=== PATIENT | male | born 1985 | race Hispanic/Latino ===

== ENCOUNTER → 2018-07-28 | Outpatient (CLI) | payer BC ==
--- NOTE | 2018-07-28 09:27 | Diagnostic Imaging Report ---
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 Procedure: Double contrast barium swallow and upper GI fluoroscopic exam was performed using thick and thin oral barium and effervescent crystals. Radiation Exposure: Fluoroscopy Time: 1.4 minutes Radiation dose: 28.8 mGy DISCUSSION: ESOPHAGUS: Motility: Within normal limits.Primarily primary and secondary contraction with brisk clearance of contrast. Mucosa: Unremarkable. Distensibility: Normal. GASTROESOPHAGEAL JUNCTION: Moderate hiatal hernia. GASTROESOPHAGEAL REFLUX: Moderate spontaneous gastroesophageal reflux above the level of the christ. STOMACH: Normally distensible and demonstrates normal contours and mucosal pattern. DUODENUM: Incompletely evaluated, but the proximal duodenum including location and appearance is unremarkable. IMPRESSION: Moderate hiatal hernia with moderate spontaneous gastroesophageal reflux. Signed by: Dr. Nigel Almanza MD on 07/28/2018 9:23 AM
== END ==
LOC: DX 08:01
PROVIDERS: ATTEND Family Medicine
DX: K21.9 Gastro-esophageal reflux disease without esophagitis (principal)
CPT/HCPCS: 74246

== ENCOUNTER → 2019-07-10 | Outpatient (CLI) | payer BC ==
--- NOTE | 2019-07-10 11:27 | Diagnostic Imaging Report ---
Chest, PA and lateral. History: Pneumonia. Comparison: None available. Discussion: The heart is within normal limits of size. The mediastinal and hilar contours are unremarkable. In the right upper lung zone there is a 13 mm of a 13 mm nodular opacity. The left lung is grossly clear. There is no pleural effusion. There is no pneumothorax. IMPRESSION: 13 mm nodular opacity in the right upper lobe. Further evaluation with chest CT is recommended. Signed by: Kj Maguire MD on 07/10/2019 11:23 AM
== END ==
LOC: RAD 10:42
PROVIDERS: ATTEND Family Medicine
DX: J18.0 Bronchopneumonia, unspecified organism (principal)
CPT/HCPCS: 71046